=== PATIENT | female | born 1995 | race Caucasian/White ===

== ENCOUNTER 2022-10-27 12:37 | Outpatient (CLI) | payer BC, MEDICAID ==
[2022-10-27] VITALS (22 sets, daily range): BP systolic 69–177; BP diastolic 28–136
== END 2022-10-27 23:59 | disposition home or self-care (01) ==
LOC: CARD DIAG 12:37
PROVIDERS: ATTEND Family Medicine
DX: R00.0 Tachycardia, unspecified (principal); Q87.43 Marfan syndrome with skeletal manifestation
CPT/HCPCS: 93660